=== PATIENT | male | born 1945 | race Caucasian/White ===

== ENCOUNTER 2021-01-06 15:04 | Emergency (ER) | payer OTHER, MEDICAID ==
[~2021-01-06] VITALS: Ht 172.7 cm; Wt 72.6 kg
--- NOTE | 2021-01-06 15:11 | Emergency Room Report ---
History of Present Illness General Chief Complaint: Chest Pain Source: Patient Present Illness HPI Disclaimer: Please note that this report is being documented using DRAGON technology. This can lead to erroneous entry secondary to incorrect interpretation by the dictating instrument. HPI: 75-year-old male presents complaint of chest pain. Symptoms began 30 minutes prior to arrival. He reports midsternal sharp pain that does not radiate. States his breathing is somewhat labored. Reports negative Covid test 3 days ago. Denies fever, chills, nausea, vomiting or diarrhea. No prior history of chest pain or cardiac disease. States he takes only antiepileptic medication but denies history of hypertension, diabetes, hypercholesterolemia and does not smoke. Chest pain has been constant since onset. It is somewhat worse with deep inspiration. No relieving factors. EMS gave 325 aspirin prior to arrival. PMH: Epilepsy PSH: Reviewed Allergies: Reviewed Social Hx: Non-smoker Allergies: Coded Allergies: No Known Allergies (Unverified , 01/06/21) COVID-19 Screening Contact w/high risk pt: No Experienced COVID-19 symptoms?: No COVID-19 Testing performed [employer] SPECIALIST: No Review of Systems All Other Systems: negative except mentioned in HPI Physical Exam Vital Signs Date Time Temp Pulse Resp B/P (MAP) Pulse Ox O2 Delivery O2 Flow Rate FiO2 01/06/21 15:00 98.1 86 16 126/72 (90) 98 Room Air General: Awake and alert, no acute distress HEENT: NC/AT. EOMI. Cardiovascular: RRR. S1 and S2 normal. No murmur appreciated Resp: Normal work of breathing. No cough, wheezing or crackles appreciated Abdomen: Abdomen is soft, nondistended. Nontender Skin: Intact. No abrasions, laceration or rash over the exposed skin MSK: Normal tone and bulk. Moving all extremities. No obvious deformity. Neuro: Awake and alert. Mentating appropriately. Procedures Critical Care Time Critical Care Time Total critical care time: Approximately 45 minutes Due to a high probability of clinically significant, life threatening deterioration, the patient required the highest level of preparedness to intervene emergently and I personally spent this critical care time directly and personally managing the patient. This critical care time included obtaining a history, examining the patient, pulse oximetry, ordering and reviewing studies, ordering treatments, evaluating response to treatment and updating management plan as needed, frequent reassessment and discussion with other providers as well as arranging for ultimate disposition. This critical to care time was performed to assess and manage the high probability of life-threatening deterioration that could result in multiorgan failure. This critical care time is separate from the separately billable procedures and treating other patients. Medical Decision Making Diagnostic Impression: Primary Impression: Chest pain Additional Impression: STEMI (ST elevation myocardial infarction) ER Course This is a 75-year-old male presenting with chest pain. Differential includes is not limited to palpitations, ACS, GERD, gastritis, esophagitis, pneumonia, chest wall pain, pancreatitis among others. Received aspirin prior to arrival. Initial EKG is concerning for ST segment elevation in inferior lateral leads but no obvious reciprocal changes. There are Q waves noted in the inferior leads. Repeat EKG shows some improvement in the inferior leads but persistent lateral lead ST elevation. Still no depressions. Troponin returned positive. Nitroglycerin was originally ordered but not given to the patient. Discussed with TK, Dr. Murray, who accept the patient. Will arrange transfer. Will defer Plavix or heparin until cardiology evaluates and recommends further treatment. Laboratory Tests Test 01/06/21 15:13 White Blood Count 9.3 K/UL (4.8-10.8) Red Blood Count 3.68 M/UL (4.70-6.10) L Hemoglobin 12.1 G/DL (14.2-18.0) L Hematocrit 34.8 % (42.0-52.0) L Mean Corpuscular Volume 95 FL (80-99) Mean Corpuscular Hemoglobin 33.0 PG (27.0-31.0) H Mean Corpuscular Hemoglobin Concent 34.9 G/DL (32.0-36.0) Red Cell Distribution Width 13.1 % (11.6-14.8) Platelet Count 247 K/UL (150-450) Mean Platelet Volume 7.3 FL (6.5-10.1) Neutrophils (%) (Auto) 69.8 % (45.0-75.0) Lymphocytes (%) (Auto) 15.7 % (20.0-45.0) L Monocytes (%) (Auto) 9.3 % (1.0-10.0) Eosinophils (%) (Auto) 4.1 % (0.0-3.0) H Basophils (%) (Auto) 1.1 % (0.0-2.0) Sodium Level 135 MMOL/L (136-145) L Potassium Level 4.3 MMOL/L (3.5-5.1) Chloride Level 100 MMOL/L (98-107) Carbon Dioxide Level 26 MMOL/L (21-32) Anion Gap 9 mmol/L (5-15) Blood Urea Nitrogen 20 mg/dL (7-18) H Creatinine 1.4 MG/DL (0.55-1.30) H Estimated Glomerular Filtration Rate 49.5 mL/min (>60) Glucose Level 130 MG/DL (74-106) H Calcium Level 8.9 MG/DL (8.5-10.1) Total Bilirubin 0.1 MG/DL (0.2-1.0) L Aspartate Amino Transferase (AST) 20 U/L (15-37) Alanine Aminotransferase (ALT) 16 U/L (12-78) Alkaline Phosphatase 115 U/L (46-116) Troponin I 0.140 ng/mL (0.000-0.056) Pro-B-Type Natriuretic Peptide 560 pg/mL (0-125) H Total Protein 7.8 G/DL (6.4-8.2) Albumin 3.7 G/DL (3.4-5.0) Globulin 4.1 g/dL Albumin/Globulin Ratio 0.9 (1.0-2.7) L Lipase 247 U/L (73-393) EKG Diagnostic Results Troponin ordered: Yes When was troponin ordered?: Jan 06, 2021 EKG Time: 15:31 Rate: normal Rhythm: NSR Other Impression Sinus rhythm, normal axis, normal intervals, ST segment elevation in inferior lateral leads. No reciprocal depression. Q waves inferior leads. ASA given to the pt in ED: No - Received by EMS prior to arrival Rhythm Strip Diag. Results Rhythm Strip Time: 15:31 EP Interpretation: yes Rate: 70 Rhythm: NSR, no PVC's, no ectopy Chest X-Ray Diagnostic Results Chest X-Ray Diagnostic Results : Chest X-Ray Ordered: Yes # of Views/Limited/Complete: 1 View Indication: Chest Pain EP Interpretation: Yes Interpretation: no consolidation, no effusion, no pneumothorax, no acute cardiopulmonary disease Last Vital Signs Date Time Temp Pulse Resp B/P (MAP) Pulse Ox O2 Delivery O2 Flow Rate FiO2 01/06/21 15:00 98.1 86 16 126/72 (43) 98 Room Air Disposition: SHORT-TERM HOSP Condition: Serious Raphael Shaw MD Jan 06, 2021 15:11
[2021-01-06 15:16] VITALS: BP 134/81
[2021-01-06] MEDS ORDERED: FLUOXETINE HCL10 M2 ORAL (15:21)
[2021-01-06] MEDS ORDERED: PROAIR HFA8.5 GM INH (15:21)
[2021-01-06] MEDS ORDERED: MECLIZINE HCL12.5 MG ORAL (15:21)
[2021-01-06] MEDS ORDERED: OYSTER SHELL C500 MG PO (15:21)
[2021-01-06] MEDS ORDERED: IBUPROFEN600 M1 ORAL (15:21)
[2021-01-06] MEDS ORDERED: ZOCOR20 M1 ORAL (15:21)
[2021-01-06] MEDS ORDERED: LEVOCETIRIZINE D5 MG ORAL (15:21)
[2021-01-06] MEDS ORDERED: GABAPENTIN100 MG ORAL (15:21)
[2021-01-06] MEDS ORDERED: PHENYTOIN100 MG/4 M ORAL (15:21)
[2021-01-06] MEDS ORDERED: PANTOPRAZOLE SO40 MG ORAL (15:21)
[2021-01-06] MEDS ORDERED: ASPIRIN81 MG ORAL (15:21)
--- NOTE | 2021-01-06 15:30 | NUR ---
pt arrived from board & care for cp starting 1400. pt denies nausea/vomiting. pt states pain thight/sharp in chest. pt denies cardiac hx. pt tested covid neg 2 weeks ago. 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 pt placed on continuous cardiac/O2 monitor. pt had iv well logging mud analysis captain, tubing/dressing changed. labs drawn & sent to lab.
[2021-01-06 15:40] LABS: BASOPHILS % (AUTO) 1.1 % (0.0-2.0); EOSINOPHILS % (AUTO) 4.1 % (0.0-3.0); HEMATOCRIT 34.8 % (42.0-52.0); HEMOGLOBIN 12.1 G/DL (14.2-18.0); LYMPHOCYTES % (AUTO) 15.7 % (20.0-45.0); MEAN CORPUSCULAR VOLUME 95 FL (80-99); MONOCYTES % (AUTO) 9.3 % (1.0-10.0); NEUTROPHILS % (AUTO) 69.8 % (45.0-75.0); PLATELET COUNT 247 K/UL (150-450); RED BLOOD COUNT 3.68 M/UL (4.70-6.10); RED CELL DISTRIBUTION WIDTH 13.1 % (11.6-14.8); WHITE BLOOD COUNT 9.3 K/UL (4.8-10.8)
[2021-01-06 15:47] LABS: CALCIUM 8.9 MG/DL (8.5-10.1); CREATININE 1.4 MG/DL (0.55-1.30); POTASSIUM 4.3 MMOL/L (3.5-5.1)
[2021-01-06 15:57] LABS: ALBUMIN 3.7 G/DL (3.4-5.0); ALBUMIN/GLOBULIN RATIO 0.9 (1.0-2.7); BILIRUBIN,TOTAL 0.1 MG/DL (0.2-1.0)
[2021-01-06 16:18] VITALS: BP 119/68
--- NOTE | 2021-01-06 16:25 | Diagnostic Imaging Report ---
Indication: Chest pain Technique: One view of the chest Comparison: none Findings: Lungs and pleural spaces are clear. Heart size is normal. Impression: No acute process
--- NOTE | 2021-01-06 16:30 | NUR ---
ekg x2 showed st elevation. md gutiérrez notified. pt to be transferred to [facility] for further cardiac workup. pt still on continuous cardiac/O2 monitor. pt denies cp. pt denies sob. pt A&Ox4.
[2021-01-06 16:46] VITALS: BP 129/66
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
--- NOTE | 2021-01-06 16:50 | NUR ---
accepting guest. pt transferred out by FR[facility]field.
[2021-01-06 16:51] VITALS: BP 129/66
--- NOTE | 2021-01-09 15:31 | Cardiology Report ---
APPROVED REPORT EKG Measurement Heart [id number] <Conclusion> Normal sinus rhythm Nonspecific T wave abnormality Abnormal ECG
== END 2021-01-06 16:52 | disposition short-term general hospital (02) ==
LOC: EDBD 15:04 → EMR 15:20
DX: I21.3 ST elevation (STEMI) myocardial infarction of unspecified site (principal); R07.9 Chest pain, unspecified; G40.909 Epilepsy, unspecified, not intractable, without status epilepticus
CPT/HCPCS: 36415; 71045; 80053; 83690; 83880; 84484; 85025; 93005; 99291